=== PATIENT | female | born 1995 | race Caucasian/White ===

== ENCOUNTER 2023-04-03 09:57 | Emergency (ER) | payer SELFPAY ==
[~2023-04-03] VITALS: Ht 160 cm; Wt 158.8 kg
[2023-04-03] MEDS ORDERED: predniSONE 10 MG TABLET PO ONE (10:15)
[2023-04-03] MEDS ORDERED: IPRATROPIUM BROMIDE 0.5 MG/2.5 ML NEBU NEB ONE ×2 (10:15→12:00)
[2023-04-03] MEDS ORDERED: ALBUTEROL SULFATE 2.5 MG/3 ML NEBU NEB ONE ×2 (10:15→12:00)
[2023-04-03] MEDS ORDERED: PSEU-249 PO (10:17)
[2023-04-03] MEDS ORDERED: FEXO-25 PO (10:17)
[2023-04-03] MEDS ORDERED: FLUT16SP16 BNOSTRILS (10:17)
[2023-04-03] MEDS ORDERED: NAPR-1164 PO (10:17)
[2023-04-03] MEDS ORDERED: PRED20TA PO (10:17)
[2023-04-03] MEDS ORDERED: IPRATROPIUM BROMIDE 0.5 MG/2.5 ML NEBU ONE ×2 (10:20→12:12)
[2023-04-03] MEDS ORDERED: ALBUTEROL SULFATE 2.5 MG/3 ML NEBU ONE ×2 (10:20→12:12)
--- NOTE | 2023-04-03 10:25 | NUR ---
PT IS IN ROOM #2A. DR PRECIADO EVALUATED THE PT.
[2023-04-03] MEDS ORDERED: KETOROLAC TROMETHAMINE 30 MG INJ IM ONE (11:00)
[2023-04-03] MEDS ORDERED: KETOROLAC TROMETHAMINE 30 MG INJ ONE (11:04)
[2023-04-03] MEDS ORDERED: AMOX500C2 PO (13:12)
--- NOTE | 2023-04-03 13:53 | NUR ---
PT WAS D/C'd TO HOME. D/C INSTRUCTIONS GIVEN TO THE PT BY DR PRECIADO.
[2023-04-03 13:56] VITALS: BP 141/76
== END 2023-04-03 13:57 | disposition home or self-care (01) ==
LOC: ER 10:01
DX: T70.0XXA Otitic barotrauma, initial encounter (principal); J45.909 Unspecified asthma, uncomplicated; E03.9 Hypothyroidism, unspecified; Z79.2 Long term (current) use of antibiotics; Z79.899 Other long term (current) drug therapy; X58.XXXA Exposure to other specified factors, initial encounter
CPT/HCPCS: 99285; 93005; 94640; 96372; 94644; J1885; A4663; J3590